=== PATIENT | female | born 1955 | race Caucasian/White ===

== ENCOUNTER 2023-01-15 18:29 | Emergency (ER) | payer OTHER, MEDICAID ==
[~2023-01-15] VITALS: Ht 154.9 cm; Wt 63.5 kg
[2023-01-15 18:57] VITALS: BP_SYST 150; PULSE 70; RESP 13; TEMP 97.6; O2SAT 99
--- NOTE | 2023-01-15 19:02 | NUR ---
Patient triaged and placed in waiting room. C/O LUQ/rib pain. S/P fall at home 01/14. VSS and patient appears in no acute distress at this time. Accompanied by Family, awaiting available bed, and MD notified of need for MSE.
--- NOTE | 2023-01-15 19:24 | NUR ---
ER in triage examining patient.
[2023-01-15] MEDS ORDERED: predniSONE 20 MG TABLET PO ONE (19:45)
[2023-01-15] MEDS ORDERED: KETOROLAC TROMETHAMINE 30 MG VIAL IM ONE (19:45)
[2023-01-15] MEDS ORDERED: IPRATROPIUM/ALBUTEROL SULFATE 3 ML AMPUL.NEB (DUONEB) INH ONE (19:45)
[2023-01-15 20:19] LABS: BASOPHILS # (AUTO) 0.1 K/uL (0.0-0.2); EOSINOPHILS # (AUTO) 0.3 K/uL (0.0-0.4); EOSINOPHILS % (AUTO) 3.3 % (0.0-4.0); HEMATOCRIT 46.6 % (36-48); HEMOGLOBIN 15.4 g/dL (12.0-16.0); LYMPHOCYTES # (AUTO) 2.2 K/uL (1.0-5.5); LYMPHOCYTES % (AUTO) 21.6 % (20.5-51.5); MEAN CORPUSCULAR HEMOGLOBIN 30 pg (27-31); MEAN CORPUSCULAR HGB CONC 33 % (32-36); MEAN CORPUSCULAR VOLUME 92 fL (79.0-98.0); MONOCYTES # (AUTO) 0.9 K/uL (0.0-1.0); MONOCYTES % (AUTO) 9.3 % (1.7-9.3); NEUTROPHILS # (AUTO) 6.6 K/uL (1.8-7.7); NEUTROPHILS % (AUTO) 64.8 % (40.0-70.0); PLATELET COUNT (AUTO) 301 K/uL (130-430); RED BLOOD CELL COUNT(AUTO) 5.08 MIL/uL (4.2-6.2); RED CELL DISTRIBUTION WIDTH 13.8 % (9.0-15.0); WHITE BLOOD COUNT (AUTO) 10.2 K/uL (4.8-10.8)
[2023-01-15 20:43] LABS: ALANINE AMINOTRANSFERASE 13 U/L (12-78); ALBUMIN 3.7 g/dL (3.4-4.8); ANION GAP 8 (5-15); ASPARTATE AMINOTRANSFERASE 18 U/L (10-37); CALCIUM 8.9 mg/dL (8.4-11.0); CHLORIDE 104 mmol/L (98-107); CREATININE 1.43 mg/dL (0.55-1.30); GFR AFRICAN AMERICAN 47 mL/min (>90); GLUCOSE 106 mg/dL (74-106); LIPASE 149 U/L (73-393); TOTAL BILIRUBIN 0.5 mg/dL (0.0-1.0); UREA NITROGEN, BLOOD 25 mg/dL (8-21)
[2023-01-15] MEDS ORDERED: NAPR-1172 PO (21:46)
[2023-01-15] MEDS ORDERED: ACET-2634 PO (21:46)
[2023-01-15] MEDS ORDERED: OXYC-128 PO ×2 (21:46)
[2023-01-15] MEDS ORDERED: OXYC-117 PO (21:48)
--- NOTE | 2023-01-15 21:50 | NUR ---
Dr. Price at bedside discussing diagnostics & Tx plan. MD will discharge patient home.
--- NOTE | 2023-01-15 22:00 | NUR ---
DCI & Rx given to patient. Patient acknowledges & understand DCI & Rx. Patient ambulated OTD in stable condition with daughter.
[2023-01-15 22:03] VITALS: BP_SYST 136; PULSE 72; RESP 16; TEMP 97.6; O2SAT 99
== END 2023-01-15 22:00 | disposition home or self-care (01) ==
LOC: SED 18:29
DX: S22.32XA Fracture of one rib, left side, initial encounter for closed fracture (principal); N17.9 Acute kidney failure, unspecified; I10 Essential (primary) hypertension; E78.5 Hyperlipidemia, unspecified; Z88.5 Allergy status to narcotic agent; Z79.899 Other long term (current) drug therapy; W18.40XA Slipping, tripping and stumbling without falling, unspecified, initial encounter; Y93.89 Activity, other specified; Y92.89 Other specified places as the place of occurrence of the external cause; Y99.8 Other external cause status
CPT/HCPCS: 99285; 71046; 80053; 83880; 83690; 85025; 84484; 36415; 93005; 71100; 96372; J7512; J1885